=== PATIENT | male | born 1995 ===

== ENCOUNTER 2021-09-07 22:09 | Outpatient (REF) | payer OTHER, SELFPAY ==
[2021-09-09 14:46] LABS: Chlamydia Result Negative (Negative); GC Result Negative (Negative)
== END 2021-09-07 22:10 | disposition home or self-care (01) ==
LOC: LBN 22:09
PROVIDERS: Visit Provider Physician Assistant Medical
DX: Z11.3 Encounter for screening for infections with a predominantly sexual mode of transmission (principal)
CPT/HCPCS: 87491; 87591